=== PATIENT | male | born 1960 | race Caucasian/White ===

== ENCOUNTER 2019-07-05 03:11 | Emergency (ER) | payer MEDICARE, OTHER ==
[~2019-07-05] VITALS: Ht 180.3 cm; Wt 80.7 kg
[~2019-07-05 03:11] MED LIST: METH-490 PO
--- NOTE | 2019-07-05 03:36 | NUR ---
Dr. Klein at bedside for MSE.
[2019-07-05] MEDS ORDERED: ALBUTEROL SULFATE 2.5 MG/3 ML NEBU NEB ONE (03:45)
[2019-07-05] MEDS ORDERED: IPRATROPIUM BROMIDE 0.5 MG/2.5 ML NEBU NEB ONE (03:45)
[2019-07-05] MEDS ORDERED: IPRATROPIUM BROMIDE 0.5 MG/2.5 ML NEBU ONE (03:52)
[2019-07-05] MEDS ORDERED: ALBUTEROL SULFATE 2.5 MG/ 0.5 ML NEBU ONE (03:52)
--- NOTE | 2019-07-05 03:53 | NUR ---
Xray at bedside.
--- NOTE | 2019-07-05 03:57 | NUR ---
Respiratory at bedside.
[2019-07-05 04:12] LABS: BASOPHILS # (AUTO) 0.1 K/uL (0.0-8.0); BASOPHILS % (AUTO) 0.6 % (0.0-2.0); EOSINOPHILS # (AUTO) 0.5 K/uL (0.0-0.7); EOSINOPHILS % (AUTO) 4.5 % (0.0-7.0); HEMATOCRIT 39.4 % (36.7-47.1); HEMOGLOBIN 13.6 g/dL (12.5-16.3); LYMPHOCYTES # (AUTO) 1.3 K/uL (20.0-40.0); LYMPHOCYTES % (AUTO) 12.6 % (20.5-51.5); MEAN CORPUSCULAR HEMOGLOBIN 31.7 uug (23.8-33.4); MEAN CORPUSCULAR HGB CONC 34 g/dL (32.5-36.3); MEAN CORPUSCULAR VOLUME 92.1 fL (73.0-96.2); MONOCYTES # (AUTO) 0.7 K/uL (2.0-10.0); MONOCYTES % (AUTO) 6.5 % (0.0-11.0); NEUTROPHILS % (AUTO) 75.8 % (38.5-71.5); PLATELET COUNT (AUTO) 240 K/uL (152-348); RED BLOOD CELL COUNT(AUTO) 4.28 MIL/uL (4.06-5.63); WHITE BLOOD COUNT (AUTO) 10.6 K/uL (3.6-10.2)
[2019-07-05 04:25] LABS: CREATININE 1.1 mg/dL (0.6-1.3); POTASSIUM 3.3 mmol/L (3.5-5.1)
[2019-07-05] MEDS ORDERED: LEVOFLOXACIN 750 MG TABLET ONE (05:38)
[2019-07-05] MEDS ORDERED: POTASSIUM CHLORIDE 20 MEQ TAB.PRT.SR ONE (05:41)
[2019-07-05] MEDS ORDERED: LEVOFLOXACIN 750 MG TABLET PO ONE (05:45)
[2019-07-05] MEDS ORDERED: POTASSIUM CHLORIDE 20 MEQ TAB.PRT.SR PO ONE (05:45)
--- NOTE | 2019-07-05 06:16 | NUR ---
Pt out of ER for CT.
--- NOTE | 2019-07-05 06:26 | NUR ---
Pt back to ER from CT.
--- NOTE | 2019-07-05 06:47 | NUR ---
Report given to Ibrahima Curtis RN dayshift.
--- NOTE | 2019-07-05 07:50 | NUR ---
Pt ambulatory to restroom, NAD noted at this time.
--- NOTE | 2019-07-05 09:23 | NUR ---
Patient discharged to home in stable conditon. Written and verbal after care instructions given. Patient verbalizes understanding of instructions.
[2019-07-05 09:24] VITALS: BP 118/77
== END 2019-07-05 09:24 | disposition home or self-care (01) ==
LOC: ER 03:22
DX: J44.1 Chronic obstructive pulmonary disease with (acute) exacerbation (principal); Z88.5 Allergy status to narcotic agent; Z79.899 Other long term (current) drug therapy
CPT/HCPCS: 36415; 71046; 71250; 85025; 87400; 93005; A4663; J3590

== ENCOUNTER 2021-12-25 23:33 | Emergency (ER) | payer MEDICARE, OTHER, MEDICAID ==
[~2021-12-25] VITALS: Ht 172.7 cm; Wt 74.8 kg
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
[2021-12-26] MEDS ORDERED: FLUORESCEIN SODIUM 1 MG STRIP ONE (00:23)
[2021-12-26] MEDS ORDERED: TETRACAINE HCL 0.5% OPHT DROP 2 ML BOTTLE ONE (00:23)
--- NOTE | 2021-12-26 00:29 | NUR ---
pt taken for cat scan.
--- NOTE | 2021-12-26 00:39 | NUR ---
pt returned from cat scan.
[2021-12-26] MEDS ORDERED: TETRACAINE HCL 0.5% OPHT DROP 2 ML BOTTLE OP ONE (00:45)
[2021-12-26] MEDS ORDERED: FLUORESCEIN SODIUM 1 MG STRIP OP ONE (00:45)
[2021-12-26] MEDS ORDERED: MORPHINE SULFATE 4 MG/1 ML DISP.SYRIN IM ONE (01:00)
[2021-12-26] MEDS ORDERED: MORPHINE SULFATE 2 MG/1 ML DISP.SYRIN ONE (01:00)
[2021-12-26] MEDS ORDERED: MORPHINE SULFATE 4 MG/1 ML DISP.SYRIN ONE (01:00)
--- NOTE | 2021-12-26 02:08 | NUR ---
call to stat rad emphasized the cat scan of head and orbit is stat urgent we need results. I asked her name but she already hung up the phone.
--- NOTE | 2021-12-26 02:33 | NUR ---
Called [facility] and spoke to Jennifer who requested facesheet and clinical to be faxed to .
--- NOTE | 2021-12-26 02:55 | NUR ---
pt refuses covid swab, pt states he wants to go home and has already called his ride.
--- NOTE | 2021-12-26 03:01 | NUR ---
Dr. Almendarez in room speaking with the pt, as pt states he wants to go home.
--- NOTE | 2021-12-26 03:07 | NUR ---
Dr. Almendarez spoke with the pt and he agrees to stay here for now but kalani refuses a covid swab test. we are waiting for [facility] to call back if they will accept him.
--- NOTE | 2021-12-26 03:33 | NUR ---
pt left ama he refused to sign the document Dr. Almendarez is aware a copy of the cat scans report was provided. and address provided for [facility].
--- NOTE | 2021-12-26 03:34 | NUR ---
Patient does not wish to proceed with medical care recommended by Dr. Almendarez. Patient given information related to possible complications, up to and including , which could occur as a result of leaving the hospital at this time. Patient verbalizes understanding of risks involved due to leaving against medical advice. Patient refused to sign ama form.
== END 2021-12-26 03:35 | disposition left against medical advice (07) ==
LOC: ER 23:42
DX: S02.32XA Fracture of orbital floor, left side, initial encounter for closed fracture (principal); V17.0XXA Pedal cycle driver injured in collision with fixed or stationary object in nontraffic accident, initial encounter; Y93.55 Activity, bike riding; Y92.89 Other specified places as the place of occurrence of the external cause; G47.419 Narcolepsy without cataplexy; Z88.6 Allergy status to analgesic agent; Z79.899 Other long term (current) drug therapy; H57.12 Ocular pain, left eye; Z53.29 Procedure and treatment not carried out because of patient's decision for other reasons
CPT/HCPCS: 99285; 70450; 96372; 70480; J2270 ×2; A4663